=== PATIENT | male | born 1950 | race Caucasian/White ===

== ENCOUNTER 2021-08-10 10:29 | Inpatient (IN) ==
[2021-08-10] MEDS ORDERED: CeFAZolin Syr 2,000MG/20 ML 2,000 MG/20 ML SYRINGE IVPB ONE (10:48)
[2021-08-10] MEDS ORDERED: Ringers Solution, Lactated 1,000 ML IVC SCH (11:00)
[2021-08-10] MEDS ORDERED: *HR* Propofol 200 MG/20 ML VIAL IVP ONE (11:03)
[2021-08-10] MEDS ORDERED: Ondansetron 4 MG/2 ML VIAL ONE ×2 (11:03→11:15)
[2021-08-10] MEDS ORDERED: *HR* Succinylcholine 200 MG/10 ML VIAL IVP ONE (11:03)
[2021-08-10] MEDS ORDERED: Lidocaine -MPF 4% 5 ML AMPUL ONE (11:03)
[2021-08-10] MEDS ORDERED: *HR* FentaNYL (PF) 100 MCG/2 ML VIAL ONE (11:03)
[2021-08-10] MEDS ORDERED: *HR* Phenylephrine 10 MG/ML VIAL ONE (11:06)
[2021-08-10] MEDS ORDERED: *HR* OxyCODONE Immed Rel 5 MG TABLET PO PRN ×2 (12:01→18:05)
[2021-08-10] MEDS ORDERED: Ondansetron 4 MG/2 ML VIAL IVP PRN ×2 (12:01→18:05)
[2021-08-10] MEDS ORDERED: Promethazine 6.25 MG in Water for inj. (sterile) 20 ML IVPB PRN (12:01)
[2021-08-10] MEDS ORDERED: Heparin 1,000 UNITS/500 mL 500 ML ONE ×2 (12:18→12:21)
[2021-08-10] MEDS ORDERED: Protamine Sulfate 50 MG/5 ML VIAL IVP ONE (12:21)
[2021-08-10] MEDS ORDERED: ceFAZolin 1,000 MG, Sodium Chloride IRRigation 1,000 ML IR ONE (12:30)
[2021-08-10] MEDS ORDERED: Lidocaine -MPF 2% 2 ML VIAL ONE ×2 (12:39→15:04)
[2021-08-10] MEDS ORDERED: *HR* Remifentanil 1 MG VIAL IVP ONE ×2 (13:18→15:25)
[2021-08-10] MEDS ORDERED: *HR* Labetalol 20 MG/4 ML SYRINGE IVP ONE (16:20)
[2021-08-10] MEDS: *HR* HYDROmorphone PF 0.5 MG/0.5 ML SYRINGE IVP PRN ×2 (16:45→16:54)
[2021-08-10] MEDS ORDERED: Naloxone 0.4 MG/ML INJ IVP PRN (18:05)
[2021-08-10] MEDS ORDERED: Acetaminophen 325 MG TABLET PO PRN (18:05)
[2021-08-10] MEDS ORDERED: *HR* Labetalol 20 MG/4 ML SYRINGE IVP PRN (18:05)
[2021-08-10] MEDS: *HR* HYDROcodone/Acet 5/325 mg TABLET PO PRN (20:51)
[2021-08-10] MEDS: CeFAZolin 2 GM/120 ML BAG IVPB SCH (20:57)
[2021-08-10] MEDS ORDERED: traZODone 50 MG TABLET PO SCH (21:00)
[2021-08-11] MEDS: CeFAZolin 2 GM/120 ML BAG IVPB SCH ×2 (04:47→11:14)
[2021-08-11 05:35] LABS: BUN/Creatinine Ratio 16 (6-26); Basophils % 0.1 %; Blood Urea Nitrogen 17 mg/dL (8-23); Calcium 8.7 mg/dL (8.6-10.3); Carbon Dioxide 26 mEq/L (23-29); Chloride 106 mEq/L (98-107); Glucose 172 mg/dL (70-105); Hematocrit 42.1 % (37.5-50.1); Hemoglobin 14.2 g/dL (12.9-16.9); Immature Granulocytes % 0.4 % (0-4); Lymphocytes # 1.8 K/mcL (0.6-4.6); Lymphocytes % 18.7 %; Mean Corpuscular HGB Conc 33.7 g/dL (31.6-35.5); Mean Corpuscular Hemoglobin 31.2 pg (28.0-33.3); Mean Corpuscular Volume 92.5 fL (83.0-100.0); Monocytes # 0.4 K/mcL (0.0-1.3); Monocytes % 4.6 %; Neutrophils # 7.3 K/mcL (1.6-8.9); Osmolality,Calculated 290 (280-300); Platelet Count 161 K/mcL (140-400); Potassium 4.1 mEq/L (3.5-5.1); Red Blood Count 4.55 M/mcL (4.19-5.50); Red Cell Distribution Width 13.5 % (11.5-14.5); Segmented Neutrophils % 76.2 %; Sodium 137 mEq/L (136-145); White Blood Count 9.5 K/mcL (4.3-11.1); eGFR For African Americans > 60 (> 60); eGFR For Non-African Americans > 60 (> 60)
[2021-08-11] MEDS: *HR* HYDROcodone/Acet 5/325 mg TABLET PO PRN (05:43)
[2021-08-11] MEDS ORDERED: *HR* Metformin 500 MG TABLET PO SCH (08:00)
[2021-08-11] MEDS ORDERED: amLODIPine 5 MG TABLET PO SCH (09:00)
[2021-08-11] MEDS ORDERED: lisinopriL 20 MG TABLET PO SCH (09:00)
[2021-08-11] MEDS ORDERED: Cholecalciferol (D-3) 1,000 UNIT (25MCG) TABLET PO SCH (09:00)
[2021-08-11] MEDS ORDERED: Famotidine 20 MG TABLET PO SCH (09:00)
[2021-08-11 10:46] VITALS: BP 166/70; PULSE 77; TEMP 97.2; O2SAT 97
== END 2021-08-11 14:05 | disposition home or self-care (01) | DRG 39 ==
LOC: SAMDAY 10:29 → 2NNU 11:59
PROVIDERS: ADMIT Surgery Vascular Surgery; ATTEND Surgery Vascular Surgery